=== PATIENT | male | born 1975 | race Caucasian/White ===

== ENCOUNTER 2023-06-09 07:27 | Day surgery (SDC) | payer OTHER ==
[~2023-06-09] VITALS: Ht 175.3 cm; Wt 90.5 kg
[~2023-06-09 07:27] MED LIST: RINGERS SOLUTION,LACTATED 1,000 ML IV ONE; TERB250T90 PO
[2023-06-09] MEDS ORDERED: ROCURONIUM BROMIDE 10 MG/ML 5 ML VIAL IVP ONE (07:28)
[2023-06-09] MEDS ORDERED: SUGAMMADEX SODIUM 200 MG/2 ML VIAL IVP ONE (07:28)
[2023-06-09] MEDS ORDERED: PROPOFOL 1% 20 ML VIAL IVP ONE (07:28)
[2023-06-09] MEDS ORDERED: MIDAZOLAM HCL 2 MG/2 ML VIAL IVP ONE (07:28)
[2023-06-09] MEDS ORDERED: ONDANSETRON HCL 4 MG/2 ML VIAL IVP ONE (07:28)
[2023-06-09] MEDS ORDERED: LIDOCAINE/PF 2% 5 ML VIAL IM ONE (07:28)
[2023-06-09] MEDS ORDERED: FentaNYL CITRATE PF 100 MCG/2 ML VIAL IVP ONE (07:28)
[2023-06-09] MEDS ORDERED: TERB250T90 PO (08:05)
[2023-06-09] MEDS ORDERED: BUPIVACAINE HCL/PF 0.5% 30 ML VIAL ONE (09:15)
[2023-06-09] MEDS ORDERED: VANCOMYCIN HCL 1 GM/VIAL ONE (09:26)
[2023-06-09] MEDS ORDERED: HYDROmorphone HCL 2 MG/ML SYRINGE IVP PRN (09:45)
[2023-06-09] MEDS ORDERED: FentaNYL CITRATE PF 100 MCG/2 ML VIAL IVP PRN (09:45)
[2023-06-09] MEDS ORDERED: MEPERIDINE-PF 25 MG/ML VIAL IVP PRN (09:45)
[2023-06-09] MEDS ORDERED: CLINDAMYCIN 600 MG/D5% WATER 50 ML IV ONE (10:15)
[2023-06-09] MEDS ORDERED: BACITRACIN 28 GM OINTMENT TP ONE (10:37)
[2023-06-09] MEDS ORDERED: BUPIVACAINE 0.25%/EPI 1:200,000/PF 10 ML VIAL ONE (11:08)
[2023-06-09] MEDS ORDERED: SILVER NITRATE APPLICATOR 1 EA STICK TP ONE (11:08)
[2023-06-09] MEDS ORDERED: OXYGEN THERAPY IH SCH (20:00)
== END 2023-06-09 12:30 | disposition home or self-care (01) ==
LOC: SURGERY 07:27
PROVIDERS: ATTEND Surgery Plastic and Reconstructive Surgery
DX: L02.01 Cutaneous abscess of face (principal); S01.502A Unspecified open wound of oral cavity, initial encounter; V49.9XXA Car occupant (driver) (passenger) injured in unspecified traffic accident, initial encounter; Y93.89 Activity, other specified; Y92.89 Other specified places as the place of occurrence of the external cause; Y99.8 Other external cause status; Z98.890 Other specified postprocedural states; L92.8 Other granulomatous disorders of the skin and subcutaneous tissue
CPT/HCPCS: 11043; 88304; 87205; 87206; 87101; 88300; 87070; J3490 ×4; J2704; J3010; J2250; J2405; Q9967; 87015; J3370; Z7610